=== PATIENT | male | born 1965 | race Caucasian/White ===

== ENCOUNTER 2021-08-22 14:58 | Emergency (ER) | payer BC ==
[~2021-08-22] VITALS: Ht 172.7 cm; Wt 65.9 kg
[2021-08-22] MEDS ORDERED: ELIQ5TAB PO (15:18)
--- NOTE | 2021-08-22 17:27 | REP ---
INDICATION: trauma to right foot. COMPARISON: None. TECHNIQUE: Four views of the right foot are provided FINDINGS: Four views of the right foot demonstrate dorsal soft tissue swelling over the midfoot and forefoot on the lateral radiograph. There is some vascular calcification. There is no visible fracture or subluxation no opaque foreign body noted. IMPRESSION: Dorsal soft tissue swelling. No fracture or subluxation seen. Vascular calcification. <Electronically signed by Vishal Arrington > 08/22/21 [id number]
[2021-08-22 20:50] VITALS: BP 156/88
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
[2021-08-22] MEDS ORDERED: ASPI81CH33 PO (20:53)
[2021-08-22] MEDS ORDERED: ZYRTTAB8 PO (20:53)
== END 2021-08-22 21:56 | disposition home or self-care (01) ==
LOC: M ED 14:58
DX: S90.31XA Contusion of right foot, initial encounter (principal); R22.41 Localized swelling, mass and lump, right lower limb; W22.8XXA Striking against or struck by other objects, initial encounter; Y92.9 Unspecified place or not applicable; Y93.9 Activity, unspecified; Y99.9 Unspecified external cause status; D69.9 Hemorrhagic condition, unspecified; Z88.1 Allergy status to other antibiotic agents